=== PATIENT | male | born 2005 | race Caucasian/White ===

== ENCOUNTER 2025-04-10 10:40 | Emergency (ER) | payer OTHER ==
[2025-04-10] MEDS ORDERED: Methocarbamol 500 MG TAB ONE (12:08)
== END 2025-04-10 12:39 | disposition home or self-care (01) ==
LOC: MADERS 10:40
DX: S93.402A Sprain of unspecified ligament of left ankle, initial encounter (principal); S40.012A Contusion of left shoulder, initial encounter; R93.89 Abnormal findings on diagnostic imaging of other specified body structures; F90.9 Attention-deficit hyperactivity disorder, unspecified type; V23.49XA Other motorcycle driver injured in collision with car, pick-up truck or van in traffic accident, initial encounter; Y92.481 Parking lot as the place of occurrence of the external cause
CPT/HCPCS: 70450; 72125